=== PATIENT | male | born 1970 | race Caucasian/White ===

== ENCOUNTER 2017-01-26 17:26 | Emergency (ER) | payer OTHER ==
--- NOTE | 2017-01-26 17:59 | DIAGNOSTIC IMAGING REPORT ---
PROCEDURE: XR CHEST 1 VIEW INDICATION: CHEST PAIN TECHNIQUE: Portable AP view (1745 hours). COMPARISON: Compared to chest x-ray on 08/31/2012. FINDINGS: Lungs are clear with mildly prominent fat pad at the right cardiophrenic angle. Heart and mediastinum are normal. Thorax is normal. IMPRESSION: 1. Negative chest.
--- NOTE | 2017-01-26 20:13 | ED ORDER SUMMARY ---
..... Patient: JOSE NIELSEN OrderSheet [facility] VisitID: [id number] [place] [address] 46y, M Registration Date/Time: 01/26/2017 ORDER SHEET Weight: 70.7 kg (stated) Allergies: Codeine GENERAL ORDERS: Chest 1V Urgent (17:36 01/26/2017 HBivens A.R.N.P.) (Ack 17:40 KHoerner) (18:06 HBivens A.R.N.P.) Invasive Cardiologist (Continuous) (17:36 01/26/2017 HBivens A.R.N.P.) (Ack 17:40 KHoerner) (17:42 KPage-Kuchan R.N.) CBC w Diff Urgent (17:37 01/26/2017 HBivens A.R.N.P.) (Ack 17:40 KHoerner) (17:42 KPage-Kuchan R.N.) CMP Urgent (17:37 01/26/2017 HBivens A.R.N.P.) (Ack 17:40 KHoerner) (17:42 KPage-Kuchan R.N.) BNP Urgent (17:37 01/26/2017 HBivens A.R.N.P.) (Ack 17:40 KHoerner) (17:42 KPage-Kuchan R.N.) D-Dimer Urgent (17:37 01/26/2017 HBivens A.R.N.P.) (Ack 17:40 KHoerner) (17:42 KPage-Kuchan R.N.) CPK Urgent (17:37 01/26/2017 HBivens A.R.N.P.) (Ack 17:40 KHoerner) (17:42 KPage-Kuchan R.N.) Troponin-I Urgent (17:37 01/26/2017 HBivens A.R.N.P.) (Ack 17:40 KHoerner) (17:42 KPage-Kuchan R.N.) Oxygen (2 L/min) (NC) (17:37 01/26/2017 HBivens A.R.N.P.) (Ack 17:40 KHoerner) (17:42 KPage-Kuchan R.N.) EKG - ER Stat (17:54 01/26/2017 KHoerner per protocol) (Ack 17:56 KHoerner) (18:23 KHoerner) CPK Urgent (18:19 01/26/2017 HBivens A.R.N.P.) (Ack 18:22 KHoerner) (20:14 AMcQuoid ER Tech1) Troponin-I Urgent (18:19 01/26/2017 HBivens A.R.N.P.) (Ack 18:22 KHoerner) (20:14 AMcQuoid ER Tech1) MEDICATION ORDERS: Aspirin PO 325 mg (Do not crush or chew, NOW) (17:37 01/26/2017 HBivens A.R.N.P.) (Ack 17:42 KPaaraceli-Oliva R.N.) (17:58 KPaaraceli-Kristiann R.N.) IV FLUIDS: IV Saline Lock (17:37 01/26/2017 HBivens A.R.N.P.) (17:42 KPaaraceli-Kuchan R.N.) ORDER SHEET NOTES: [Electronically signed by Brandy Llamas R.N. (20:33 01/26/2017)] [Electronically signed by Carmen Pineda.R.N.P. (20:43 01/26/2017)] [Electronically locked/signed by Brandy Llamas R.N. (20:33 01/26/2017)]
--- NOTE | 2017-01-26 20:13 | ED CLINICAL REPORT ---
Clinical Report - Physicians/Mid Levels [facility] [address] [place] [address] 01/26/2017 17:26 Patient: JOSE NIELSEN Time Seen: 17:30; upon arrival, initial patient contact, initial documentation, patient care assumed. Arrived- By private vehicle. Historian- patient. HISTORY OF PRESENT ILLNESS Chief Complaint: CHEST PAIN and DISCOMFORT. This started yesterday and is still present. It was abrupt in onset and has been constant. At its maximum, severity described as severe. When seen in the E.D., severity described as moderate. Modifying factors- worsened by movement, cough and deep breaths. Not relieved by anything. It is described as pressure, tightness and "pain" and it is described as located in the central chest area and radiating to the upper back. No nausea, vomiting or diaphoresis. (came on suddenly when throwing firewood). He has had mild difficulty breathing on exertion. No additional chest pain. Similar symptoms previously: None. Recent medical care: Not recently seen/assessed. REVIEW OF SYSTEMS No fever, cough or pedal edema. All systems otherwise negative, except as recorded above. PAST HISTORY See nurses notes. PROBLEMS: Obesity. Renal Colic. Cervical Strain. Nephrolithiasis. Gastroesophageal Reflux. Ureterolithiasis. Hepatitis. Bronchitis. COPD - Chronic Obstructive Pulmonary Disease. Gastroesophageal Reflux Disease. Fractured Phalanx (Toe). Migraine Headache. --17:33 Brandy Llamas RAbbey. Peptic Ulcer Disease [RuleOut]. --17:33 Brandy Llamas RAbbey. ADDITIONAL SURGERIES: Kidney stones. Lithotripsy. --17:33 Brandy Llamas R.N. SOCIAL HISTORY Heavy tobacco smoker. Regular alcohol use; consumes beer and liquor. No drug use. No recent travel. Is a local resident. FAMILY HISTORY Negative. ADDITIONAL NOTES The nursing notes have been reviewed with agreement regarding the chief complaint, HPI, ROS, PMH and patient medications and allergies. PHYSICAL EXAM Vital Signs: 01/26/2017 17:30 BP: 125/89. HR: 77. RR: 19. O2 saturation: 98%. Temp: 97.9 F. Pain level now: 04/12. Have been reviewed as normal and appear to be correct. Appearance: Alert. Oriented X3. No acute distress. Eyes: Pupils equal, round and reactive to light. Eyes normal inspection. Neck: Normal inspection. Neck supple. CVS: Normal heart rate and rhythm. Heart sounds normal. Pulses normal. Respiratory: No respiratory distress. Breath sounds normal. Chest nontender. Back: Normal external inspection. Skin: Skin warm and dry. Normal skin color. No rash. Normal skin turgor. Extremities: Extremities exhibit normal ROM. No lower extremity edema. Neuro: Oriented X 3. No motor deficit. No sensory deficit. LABS, X-RAYS, AND EKG EKG: EKG time: (1756). No acute process. No acute ischemia. Normal EKG. Rate: 72. Normal EKG. The study has been interpreted contemporaneously by me (and dr cobb). The EKG appears to be a good tracing. Interpretation time: 1756. Chest X-ray: Normal Chest X-Ray. (IMPRESSION: 1. Negative chest. Electronically Final signed by:Marco Lopez MD 01/26/2017 5:55:17 PM). The X-rays were interpreted by the radiologist and contemporaneously by me. Interpretation time: 18:05. Laboratory Tests: CBC w Diff: (ANDRAE: 01/26/2017 17:39) ( MsgRcvd 01/26/2017 17:53) Final results Test Result Flag Units (Reference) WHITE BLOOD COUNT 11.3 K/uL (4.5-11.5) RED BLOOD COUNT 4.89 M/uL (4.50-5.90) HEMOGLOBIN 15.3 gm/dL (13.5-17.5) HEMATOCRIT 44.8 % (41.0-53.0) MEAN CELL VOLUME 92 fL (80-100) MEAN CORPUSCULAR HGB 31 pg (26-34) MEAN CORPUSCULAR HGB CONC 34 g/dL (31-37) RED CELL DISTRIBUTION WIDTH 12.3 % (11.6-14.8) PLATELET COUNT 362 K/uL (150-400) NEUTROPHIL % 62.5 % (50-75) LYMPH % 22.6 L % (25-40) MONO % 9.0 % (3-14) EOSINOPHIL % 5.0 H % (0-4) BASOPHIL % 0.9 % (0-2) [id number]: (ANDRAE: 01/26/2017 17:39) ( [facility] 01/26/2017 18:17) Final results Test Result Flag Units (Reference) D-DIMER QUANTITATIVE < 0.27 L ug/mLFEU (0.27-0.52) The primary value of this quantitative assay relates toits negative predictive value (i.e. exclusion) of pulmonaryembolism/deep vein thrombosis/DIC.Elevated levels of d-dimer may also occur with:, age, cancer, inflammation, liver disease,post-op, infection, hematoma, coronary disease, peripheralarteriopathy, bleeding disorders and thrombolytic treatment.Results should be correlated with other clinical andradiological data.Testing Methodology: Latex Immunoassay CPK: (ANDRAE: 01/26/2017 19:05) ( [facility] 01/26/2017 19:32) Final results Test Result Flag Units (Reference) CPK 230 U/L (24-260) TROPONIN I 0.05 ng/mL (0.00-1.5) TROPONIN REFERENCE RANGE:<0.1 NEGATIVE0.1-1.5 INDETERMINANT>1.5 POSITIVE BNP: (ANDRAE: 01/26/2017 17:39) ( [facility] 01/26/2017 18:09) Final results Test Result Flag Units (Reference) B-TYPE NATRIURETIC PEPTIDE 5.8 pg/ml (5-100) CMP: (ANDRAE: 01/26/2017 17:39) ( [facility] 01/26/2017 18:09) Final results Test Result Flag Units (Reference) GLUCOSE 97 mg/dL (70-110) BUN 20 H mg/dL (7-18) CREATININE 1.1 mg/dL (0.6-1.3) Estimated GFR >60 mL/min Estimated GFR- >60 mL/min Note: Persistent reduction over 3 months in eGFR<60 mL/min/1.73 m2 defines CKD. Patients with eGFR values>=60 mL/min/1.73 m2 may also have CKD if evidence ofpersistent proteinuria. Additional information may be foundat www.kidney.org. SODIUM 141 mmol/L (136-145) POTASSIUM 4.0 mmol/L (3.5-5.1) CHLORIDE 105 mmol/L (98-107) CARBON DIOXIDE 27 mmol/L (21-32) CALCIUM 9.0 mg/dL (8.5-10.1) TOTAL PROTEIN 7.8 g/dL (6.4-8.2) ALBUMIN 4.2 g/dL (3.3-5.0) BILIRUBIN, TOTAL 1.0 mg/dL (0.0-1.0) ALKALINE PHOSPHATASE 91 U/L (46-116) AST (SGOT) 26 U/L (15-37) ALT (SGPT) 56 U/L (12-78) CPK 231 U/L (24-260) TROPONIN I <0.05 L ng/mL (0.00-1.5) TROPONIN REFERENCE RANGE:<0.1 NEGATIVE0.1-1.5 INDETERMINANT>1.5 POSITIVE . PROGRESS AND PROCEDURES Patient counseled in person regarding the patient's stable condition, test results and diagnosis. 20:08. Differential Diagnosis: I considered muscle strain, costochondritis, myositis, pleurisy, myocardial infarction, intermediate coronary syndrome, unstable angina, angina, aortic dissection, mitral valve prolapse, pericarditis, pulmonary embolism, pneumonia, lung cancer, gastroesophageal reflux disease, esophagitis and esophageal spasm as a possible cause of chest pain in this patient. This is a partial list of diagnoses considered. Above considerations are based on history, physical exam, reassessment, laboratory data, X-Ray data and EKG. Differential diagnosis was discussed with patient. Disposition: Discharged home in good and improved condition (20:13). Condition: good and stable. CLINICAL IMPRESSION Chest wall pain .12 lead EKG performed. Costochondritis .12 lead EKG performed. INSTRUCTIONS Warnings: GENERAL WARNINGS: Return or contact your physician immediately if your condition worsens or changes unexpectedly, if not improving as expected, or if other problems arise. SPECIFICALLY, return if you develop chest, neck, jaw, shoulder, arm, or back pain, difficulty breathing, a fluttering sensation in your chest, lightheadedness, fainting, excessive fatigue, or sudden sweating. Prescription Medications: Naproxen 500 mg tablets: take 1 orally every 12 hours as needed for pain. Dispense twenty (20). No refills. Follow-up: Follow up with your doctor in about two days even if well. Call for an appointment. Summary of care provided to patient. Understanding of the discharge instructions verbalized by patient. (Electronically signed by Carmen Pineda A.R.N.P. 01/26/2017 20:43)
--- NOTE | 2017-01-26 20:13 | ED ORDER SUMMARY ---
..... Patient: JOSE NIELSEN OrderSheet [facility] VisitID: [id number] [place] [address] 46y, M Registration Date/Time: 01/26/2017 ORDER SHEET Weight: 70.7 kg (stated) Allergies: Codeine GENERAL ORDERS: Chest 1V Urgent (17:36 01/26/2017 HBivens A.R.N.P.) (Ack 17:40 KHoerner) (18:06 HBivens A.R.N.P.) Merchandise Examiner (Continuous) (17:36 01/26/2017 HBivens A.R.N.P.) (Ack 17:40 KHoerner) (17:42 KPage-Kuchan R.N.) CBC w Diff Urgent (17:37 01/26/2017 HBivens A.R.N.P.) (Ack 17:40 KHoerner) (17:42 KPage-Kuchan R.N.) CMP Urgent (17:37 01/26/2017 HBivens A.R.N.P.) (Ack 17:40 KHoerner) (17:42 KPage-Kuchan R.N.) BNP Urgent (17:37 01/26/2017 HBivens A.R.N.P.) (Ack 17:40 KHoerner) (17:42 KPage-Kuchan R.N.) D-Dimer Urgent (17:37 01/26/2017 HBivens A.R.N.P.) (Ack 17:40 KHoerner) (17:42 KPage-Kuchan R.N.) CPK Urgent (17:37 01/26/2017 HBivens A.R.N.P.) (Ack 17:40 KHoerner) (17:42 KPage-Kuchan R.N.) Troponin-I Urgent (17:37 01/26/2017 HBivens A.R.N.P.) (Ack 17:40 KHoerner) (17:42 KPage-Kuchan R.N.) Oxygen (2 L/min) (NC) (17:37 01/26/2017 HBivens A.R.N.P.) (Ack 17:40 KHoerner) (17:42 KPage-Kuchan R.N.) EKG - ER Stat (17:54 01/26/2017 KHoerner per protocol) (Ack 17:56 KHoerner) (18:23 KHoerner) CPK Urgent (18:19 01/26/2017 HBivens A.R.N.P.) (Ack 18:22 KHoerner) (20:14 AMcQuoid ER Tech1) Troponin-I Urgent (18:19 01/26/2017 HBivens A.R.N.P.) (Ack 18:22 KHoerner) (20:14 AMcQuoid ER Tech1) MEDICATION ORDERS: Aspirin PO 325 mg (Do not crush or chew, NOW) (17:37 01/26/2017 HBivens A.R.N.P.) (Ack 17:42 KPaaraceli-Oliva R.N.) (17:58 KPaaraceli-Kristiann R.N.) IV FLUIDS: IV Saline Lock (17:37 01/26/2017 HBivens A.R.N.P.) (17:42 KPaaraceli-Kuchan R.N.) ORDER SHEET NOTES: [Electronically signed by Brandy Llamas R.N. (20:33 01/26/2017)] [Electronically signed by Carmen Pineda.R.N.P. (20:43 01/26/2017)] [Electronically locked/signed by Brandy Llamas R.N. (20:33 01/26/2017)]
--- NOTE | 2017-01-26 20:13 | ED NURSING NOTES ---
Clinical Report - Nurses [facility] [address] [place] [address] 01/26/2017 17:26 Patient: JOSE NIELSEN TRIAGE Triage time 17:30 Jan 26 2017. Chief Complaint: CHEST PAIN and (pt reports onset of cp that began yesterday while throwing firewood, pain increases with deep breathing and cough. pt sent from [facility]). Alert. No acute distress. SEPSIS SCREEN: Sepsis Screen: negative. Negative (no infection suspected/documented). --17:36 Brandy Llamas R.N. 17:30 01/26/17. BP: 125/89. HR: 77. RR: 19. O2 saturation: 98%. Temp: 97.9 F. Pain level now: 04/12. --17:36 Brandy Llamas R.N. Weight: 70.7 kg stated. Height/Length: 67 inches Per Patient. BMI: 24.4. --17:33 Brandy Llamas R.N. Medications ProAir HFA Inhalation. --17:32 Brandy Llamas R.N. Omeprazole Oral. --17:33 Brandy Llamas R.N. Hydrochlorothiazide Oral. --17:41 Brandy Llamas R.N. Ranitidine HCl Oral. --17:41 Brandy Llamas R.N. Allergies Codeine. --17:31 Brandy Llamas R.N. History Arrived by private vehicle. Historian: patient and family. Accompanied by family. ( pt states pain is under left shoulder blade and comes "through to the front" inc pain with deep breathing and coughing,). Treatment SIDE TRIMMER: None. PAST MEDICAL HX: Immunizations: up-to-date. SOCIAL HX: Heavy tobacco smoker (cigarette)- less than 1 pack per day. Occasional alcohol use; consumes beer occasionally and liquor occasionally. No drug use. No infectious disease exposure. ( pt "I smoked my last cigarette this morning"). ABUSE ASSESSMENT: No report of abuse. SELF HARM ASSESSMENT: A self harm assessment was performed. The patient answered "no" to the question "Have you recently felt down, depressed, or hopeless?", "Have you noticed less interest or pleasure in doing things?", "Do you have thoughts of harming or killing yourself?", "Are you here because you tried to hurt yourself?", "Have you ever tried to hurt yourself before today?", "Have you recently had thoughts about harming or killing others?" and "Do you have any dangerous items in your possession?". FALL RISK ASSESSMENT: Fall risk assessment completed. No fall risk identified. NUTRITIONAL RISK ASSESSMENT: The nutritional risk assessment revealed no deficiencies. FUNCTIONAL ASSESSMENT: Functional assessment: no impairments noted. LEARNING NEEDS ASSESSMENT: The learning needs assessment revealed no barriers. SKIN INTEGRITY ASSESSMENT: Skin integrity risk assessment completed. No skin integrity risk identified. --17:36 Brandy Llamas R.N. PROBLEMS: Obesity. Renal Colic. Cervical Strain. Nephrolithiasis. Gastroesophageal Reflux. Ureterolithiasis. Hepatitis. Bronchitis. COPD - Chronic Obstructive Pulmonary Disease. Gastroesophageal Reflux Disease. Fractured Phalanx (Toe). Migraine Headache. --17:33 Brandy Llamas R.N. Peptic Ulcer Disease [RuleOut]. --17:33 Brandy Llamas R.N. ADDITIONAL SURGERIES: Kidney stones. Lithotripsy. --17:33 Brandy Llamas R.N. Interventions ID and allergy band on patient. --17:36 Brandy Llamas R.N. PHYSICAL ASSESSMENT Ambulatory to room. Patient gowned. GENERAL / NEURO / PSYCH: Alert. Oriented X 4. Appears in no acute distress. HEENT: Mucous membranes are pink. RESPIRATORY: Respirations not labored. Chest nontender. Breath sounds within normal limits. CVS: Heart sounds within normal limits. Pulses within normal limits. Capillary refill less than 2 seconds. GI / : Abdomen soft and nontender. EXTREMITIES: No lower extremity edema. SKIN: Skin is warm and dry. Normal skin turgor. Skin is non-tender. --17:37 Brandy Llamas R.N. NURSING PROGRESS NOTES 17:33 01/26/2017 Site #1 started via IV antecubital space with an 18g angiocath; one attempt. Blood drawn: rainbow set. Labeled in the presence of the patient and sent to the lab. Saline lock flushed with 10 mL saline. --17:38 Brandy Llamas R.N. clinical educator, pulse oximeter and NIBP monitor placed on patient; hydrodynamics professor- Lead II and V5; monitor alarms on. Blood samples drawn. (with iv stick). Patient gowned. Head of bed elevated. Reassurance given. Two patient identifiers checked. Call light placed in reach. Side rails up x 1. Bed placed in lowest position. Brakes of bed on. Patient waiting for lab results. --17:38 Brandy Llamas R.N. Patient waiting for lab results. --17:58 Brandy Llamas R.N. 17:48 01/26/2017 Aspirin PO 325 mg given. Allergies verified and confirmed 5 rights. --17:58 Brandy Llamas R.N. 17:51 01/26/17. EKG was performed by a nurse and shown to the CLOTHING DESIGNER. Call light placed in reach. ( cxr at bedside). --17:57 Brandy Llamas R.N. Cardiac rhythm: normal sinus rhythm; no ectopy noted. --17:59 Brandy Llamas R.N. ( pt cont in SR, no change in pain level quality or quantity since presentation, pt watching tv, moves about independently on [employer], plan is to draw 2nd set of enzymes at 1900). --18:41 Brandy Llamas R.N. 18:42 01/26/17. BP: 91/73. HR: 76. RR: 18. O2 saturation: 97% on nasal cannula at 2 liters/minute. --18:42 Brandy Llamas R.N. Reassessment after oxygen administered and medication administered (no change in pain following O2 placement). He is calm and resting quietly and has had no adverse reaction. Overall patient status is the same- he states feels the same. RESPIRATORY: No respiratory distress. SKIN: Skin is warm and dry. Skin color within normal limits. --18:43 Brandy Llamas R.N. Patient ID band checked for patient name and birthdate. Blood samples drawn from the right hand by nurse per protocol ; labeled in presence of the patient and sent to lab: [facility]. --19:11 Brandy Llamas R.N. Patient waiting for lab results. ( Pt cont in SR on monitor, no ectopy noted, mom at bedside, waiting 2nd set of enzymes for dispo from ED). --19:36 Brandy Llamas R.N. DISPOSITION / DISCHARGE 20:25 01/26/2017 Site #1 removed upon discharge. Bandaid applied. --20:30 Brandy Llamas R.N. Cardiac rhythm: (SR). Ability to learn limited by intellectual disability; teaching performed with the patient and family. Learning barriers note: with Mom. Reviewed medication(s) side effects and course information. Prescription(s) given to the parent. Reviewed need to stop smoking. Patient and parent verbalized understanding. Written instructions provided in Polish. The patient was discharged by the nurse practitioner. He was discharged home and accompanied by parent. He left the Emergency Department ambulatory and via private vehicle. Parent driving. ( pt dc home ambulatory, given rx and f/u.). --20:32 Brandy Llamas R.N. 20:29 01/26/17. BP: 124/69. HR: 72. RR: 19. O2 saturation: 99%. Temp: 98.3 F. Pain level now: 05/13. --20:32 Brandy Llamas R.N. Locked/Released at 01/26/2017 20:33 by Branyd Llamas R.N.
--- NOTE | 2017-01-26 20:13 | ED NURSING NOTES ---
Clinical Report - Nurses Merged With [facility] [address] [place] [address] 01/26/2017 17:26 Patient: JOSE NIELSEN TRIAGE Triage time 17:30 Jan 26 2017. Chief Complaint: CHEST PAIN and (pt reports onset of cp that began yesterday while throwing firewood, pain increases with deep breathing and cough. pt sent from [facility]). Alert. No acute distress. SEPSIS SCREEN: Sepsis Screen: negative. Negative (no infection suspected/documented). --17:36 Brandy Llamas R.N. 17:30 01/26/17. BP: 125/89. HR: 77. RR: 19. O2 saturation: 98%. Temp: 97.9 F. Pain level now: 04/12. --17:36 Brandy Llamas R.N. Weight: 70.7 kg stated. Height/Length: 67 inches Per Patient. BMI: 24.4. --17:33 Brandy Llamas R.N. Medications ProAir HFA Inhalation. --17:32 Brandy Llamas R.N. Omeprazole Oral. --17:33 Brandy Llamas R.N. Hydrochlorothiazide Oral. --17:41 Brandy Llamas R.N. Ranitidine HCl Oral. --17:41 Brandy Llamas R.N. Allergies Codeine. --17:31 Brandy Llamas R.N. History Arrived by private vehicle. Historian: patient and family. Accompanied by family. ( pt states pain is under left shoulder blade and comes "through to the front" inc pain with deep breathing and coughing,). Treatment DETENTION DEPUTY: None. PAST MEDICAL HX: Immunizations: up-to-date. SOCIAL HX: Heavy tobacco smoker (cigarette)- less than 1 pack per day. Occasional alcohol use; consumes beer occasionally and liquor occasionally. No drug use. No infectious disease exposure. ( pt "I smoked my last cigarette this morning"). ABUSE ASSESSMENT: No report of abuse. SELF HARM ASSESSMENT: A self harm assessment was performed. The patient answered "no" to the question "Have you recently felt down, depressed, or hopeless?", "Have you noticed less interest or pleasure in doing things?", "Do you have thoughts of harming or killing yourself?", "Are you here because you tried to hurt yourself?", "Have you ever tried to hurt yourself before today?", "Have you recently had thoughts about harming or killing others?" and "Do you have any dangerous items in your possession?". FALL RISK ASSESSMENT: Fall risk assessment completed. No fall risk identified. NUTRITIONAL RISK ASSESSMENT: The nutritional risk assessment revealed no deficiencies. FUNCTIONAL ASSESSMENT: Functional assessment: no impairments noted. LEARNING NEEDS ASSESSMENT: The learning needs assessment revealed no barriers. SKIN INTEGRITY ASSESSMENT: Skin integrity risk assessment completed. No skin integrity risk identified. --17:36 Brandy Llamas R.N. PROBLEMS: Obesity. Renal Colic. Cervical Strain. Nephrolithiasis. Gastroesophageal Reflux. Ureterolithiasis. Hepatitis. Bronchitis. COPD - Chronic Obstructive Pulmonary Disease. Gastroesophageal Reflux Disease. Fractured Phalanx (Toe). Migraine Headache. --17:33 Brandy Llamas R.N. Peptic Ulcer Disease [RuleOut]. --17:33 Brandy Llamas R.N. ADDITIONAL SURGERIES: Kidney stones. Lithotripsy. --17:33 Brandy Llamas R.N. Interventions ID and allergy band on patient. --17:36 Brandy Llamas R.N. PHYSICAL ASSESSMENT Ambulatory to room. Patient gowned. GENERAL / NEURO / PSYCH: Alert. Oriented X 4. Appears in no acute distress. HEENT: Mucous membranes are pink. RESPIRATORY: Respirations not labored. Chest nontender. Breath sounds within normal limits. CVS: Heart sounds within normal limits. Pulses within normal limits. Capillary refill less than 2 seconds. GI / : Abdomen soft and nontender. EXTREMITIES: No lower extremity edema. SKIN: Skin is warm and dry. Normal skin turgor. Skin is non-tender. --17:37 Brandy Llamas R.N. NURSING PROGRESS NOTES 17:33 01/26/2017 Site #1 started via IV antecubital space with an 18g angiocath; one attempt. Blood drawn: rainbow set. Labeled in the presence of the patient and sent to the lab. Saline lock flushed with 10 mL saline. --17:38 Brandy Llamas R.N. marketing operations specialist, pulse oximeter and NIBP monitor placed on patient; head filter press tender- Lead II and V5; monitor alarms on. Blood samples drawn. (with iv stick). Patient gowned. Head of bed elevated. Reassurance given. Two patient identifiers checked. Call light placed in reach. Side rails up x 1. Bed placed in lowest position. Brakes of bed on. Patient waiting for lab results. --17:38 Brandy Llamas R.N. Patient waiting for lab results. --17:58 Brandy Llamas R.N. 17:48 01/26/2017 Aspirin PO 325 mg given. Allergies verified and confirmed 5 rights. --17:58 Brandy Llamas R.N. 17:51 01/26/17. EKG was performed by a nurse and shown to the SPRING MAN[employer]URING SET UP TECHNICIAN. Call light placed in reach. ( cxr at bedside). --17:57 Brandy Llamas R.N. Cardiac rhythm: normal sinus rhythm; no ectopy noted. --17:59 Brandy Llamas R.N. ( pt cont in SR, no change in pain level quality or quantity since presentation, pt watching tv, moves about independently on Where's Up, plan is to draw 2nd set of enzymes at 1900). --18:41 Brandy Llamas R.N. 18:42 01/26/17. BP: 91/73. HR: 76. RR: 18. O2 saturation: 97% on nasal cannula at 2 liters/minute. --18:42 Brandy Llamas R.N. Reassessment after oxygen administered and medication administered (no change in pain following O2 placement). He is calm and resting quietly and has had no adverse reaction. Overall patient status is the same- he states feels the same. RESPIRATORY: No respiratory distress. SKIN: Skin is warm and dry. Skin color within normal limits. --18:43 Brandy Llamas R.N. Patient ID band checked for patient name and birthdate. Blood samples drawn from the right hand by nurse per protocol ; labeled in presence of the patient and sent to lab: [facility]. --19:11 Brandy Llamas R.N. Patient waiting for lab results. ( Pt cont in SR on monitor, no ectopy noted, mom at bedside, waiting 2nd set of enzymes for dispo from ED). --19:36 Brandy Llamas R.N. DISPOSITION / DISCHARGE 20:25 01/26/2017 Site #1 removed upon discharge. Bandaid applied. --20:30 Brandy Llamas R.N. Cardiac rhythm: (SR). Ability to learn limited by intellectual disability; teaching performed with the patient and family. Learning barriers note: with Mom. Reviewed medication(s) side effects and course information. Prescription(s) given to the parent. Reviewed need to stop smoking. Patient and parent verbalized understanding. Written instructions provided in Ukrainian. The patient was discharged by the nurse practitioner. He was discharged home and accompanied by parent. He left the Emergency Department ambulatory and via private vehicle. Parent driving. ( pt dc home ambulatory, given rx and f/u.). --20:32 Brandy Llamas R.N. 20:29 01/26/17. BP: 124/69. HR: 72. RR: 19. O2 saturation: 99%. Temp: 98.3 F. Pain level now: 05/13. --20:32 Brandy Llamas R.N. Locked/Released at 01/26/2017 20:33 by Brandy Llamas R.N.
--- NOTE | 2017-01-26 20:43 | ED MED RECONCILIATION SUMMARY ---
Patient: JOSE NIELSEN Medication Reconciliation Report [facility] VisitID: [id number] [address] [place] [address] 46y, M Registration Date/Time: 01/26/2017 Weight: 70.7 kg Height/Length: 67 in. BMI: 24.4 ALLERGIES: Codeine The patient's Home Medications are listed below: THE FOLLOWING MEDICATIONS NEED TO BE RECONCILED: Hydrochlorothiazide Oral Omeprazole Oral ProAir HFA Inhalation Ranitidine HCl Oral The source(s) of the original Home Medication information: Not obtained. The following Medications were given to the patient in the Emergency Department: Aspirin [PO] PO 325 mg, administered: 01/26/2017 5:48:00 PM The following Medications were prescribed to the patient: Naproxen 500 mg tablets: take 1 orally every 12 hours as needed for pain. Dispense twenty (20). No refills. -- Carmen Pineda A.R.N.P.
--- NOTE | 2017-01-26 20:43 | ED MAR SUMMARY ---
..... Medication Administration Record [facility] [address] [place] [address] Patient: JOSE NIELSEN Visit ID: [id number] 46y, M Weight: 70.7 kg Height/Length: 67 in BMI: 24.4 ALLERGIES: Codeine Given 17:48 01/26/2017 Brandy Llamas RAnt Medication Administered: ASPIRIN [PO], Dose: 325 mg PO. Medication Ordered: Aspirin PO 325 mg (Do not crush or chew, NOW).
--- NOTE | 2017-01-26 20:43 | ED MAR SUMMARY ---
..... Medication Administration Record [facility] [address] [place] [address] Patient: JOSE NIELSEN Visit ID: [id number] 46y, M Weight: 70.7 kg Height/Length: 67 in BMI: 24.4 ALLERGIES: Codeine Given 17:48 01/26/2017 Brandy Llamas RAnt Medication Administered: ASPIRIN [PO], Dose: 325 mg PO. Medication Ordered: Aspirin PO 325 mg (Do not crush or chew, NOW).
--- NOTE | 2017-01-26 20:43 | ED DISCHARGE INSTRUCTIONS ---
Patient: JOSE NIELSEN General Instructions [facility] VisitID: [id number] [place] [address] 46y, M Registration Date/Time: 01/26/2017 Chest wall pain .12 lead EKG performed. Costochondritis .12 lead EKG performed. INSTRUCTIONS Warnings: GENERAL WARNINGS: Return or contact your physician immediately if your condition worsens or changes unexpectedly, if not improving as expected, or if other problems arise. SPECIFICALLY, return if you develop chest, neck, jaw, shoulder, arm, or back pain, difficulty breathing, a fluttering sensation in your chest, lightheadedness, fainting, excessive fatigue, or sudden sweating. Prescription Medications: Naproxen 500 mg tablets: take 1 orally every 12 hours as needed for pain. Dispense twenty (20). No refills. Follow-up: Follow up with your doctor in about two days even if well. Call for an appointment. Summary of care provided to patient. Understanding of the discharge instructions verbalized by patient. ADDITIONAL INFORMATION Chest Wall Pain: Costochondritis The chest pain that you have had today is caused by Costochondritis. This condition is due to an inflammation of the cartilage joining the ribs to the breastbone. It is not caused by heart or lung problems. Although the exact cause for costochondritis is not known, it often occurs during times of emotional stress. It can be painful, but it is not dangerous. It usually disappears within one to two weeks, but may recur. Rarely, a more serious condition may cause symptoms similar to costochondritis; therefore, watch for the warning signs listed below. Home Care: If you feel that emotional stress is a cause of your condition, try to identify sources of that stress. It may not be obvious! Learn ways to deal with the stress in your life such as regular exercise, muscle relaxation, meditation, or simply taking time out for yourself. For more information about this, consult your doctor or go to a local bookstore and review books and tapes available on the subject of stress reduction. You may use acetaminophen (Tylenol) or ibuprofen (Motrin, Advil) to control pain, unless another pain medicine was prescribed. [ NOTE: If you have liver disease or ever had a stomach ulcer, talk with your doctor before using these medicines.] The use of heat (hot wet compress or heating pad) with or without local analgesic creams (Deep Heat Rub, Ej Olivia) will be helpful to reduce pain. Follow Up with your doctor as directed or sooner if you do not start to improve within the next two days. Get Prompt Medical Attention if any of the following occur: A change in the type of pain: if it feels different, becomes more severe, lasts longer, or spreads into your shoulder, arm, neck, jaw or back Shortness of breath or increased pain with breathing Weakness, dizziness, or fainting Cough with dark colored sputum (phlegm) or blood Abdominal pain Dark red or black stools Fever of 100.4F (38C) or higher, or as directed by your healthcare provider Chest Strain A strain of the chest is due to stretching and tearing of the muscle fibers between the ribs. This may occur as a result of severe coughing, strenuous lifting or twisting injuries of the upper back. This usually causes increased pain with movement or deep breathing. This may take a few days to a few weeks to heal. Home Care: Rest. Avoid heavy lifting or strenuous exertion. Avoid any activity that causes pain. If you have a severe cough, use a cough syrup such as Robitussin DM (containing dextromethorphan) unless another cough medicine was prescribed. You may use acetaminophen (Tylenol) or ibuprofen (Motrin, Advil) to control pain, unless another medicine was prescribed. [ NOTE: If you have chronic liver or kidney disease or ever had a stomach ulcer or GI bleeding, talk with your doctor before using these medicines.] Follow Up with your doctor as directed. Get Prompt Medical Attention if any of the following occur: A change in the type of pain: if it feels different, becomes more severe, lasts longer, or begins to spread into your shoulder, arm, neck, jaw or back Shortness of breath or increased pain with breathing Cough with dark colored sputum (phlegm) or blood Weakness, dizziness, or fainting Fever of 100.4F (38C) or higher, or as directed by your healthcare provider Chest Wall Pain: Costochondritis The chest pain that you have had today is caused by Costochondritis. This condition is due to an inflammation of the cartilage joining the ribs to the breastbone. It is not caused by heart or lung problems. Although the exact cause for costochondritis is not known, it often occurs during times of emotional stress. It can be painful, but it is not dangerous. It usually disappears within one to two weeks, but may recur. Rarely, a more serious condition may cause symptoms similar to costochondritis; therefore, watch for the warning signs listed below. Home Care: If you feel that emotional stress is a cause of your condition, try to identify sources of that stress. It may not be obvious! Learn ways to deal with the stress in your life such as regular exercise, muscle relaxation, meditation, or simply taking time out for yourself. For more information about this, consult your doctor or go to a local bookstore and review books and tapes available on the subject of stress reduction. You may use acetaminophen (Tylenol) or ibuprofen (Motrin, Advil) to control pain, unless another pain medicine was prescribed. [ NOTE: If you have liver disease or ever had a stomach ulcer, talk with your doctor before using these medicines.] The use of heat (hot wet compress or heating pad) with or without local analgesic creams (Deep Heat Rub, Ej Olivia) will be helpful to reduce pain. Follow Up with your doctor as directed or sooner if you do not start to improve within the next two days. Get Prompt Medical Attention if any of the following occur: A change in the type of pain: if it feels different, becomes more severe, lasts longer, or spreads into your shoulder, arm, neck, jaw or back Shortness of breath or increased pain with breathing Weakness, dizziness, or fainting Cough with dark colored sputum (phlegm) or blood Abdominal pain Dark red or black stools Fever of 100.4F (38C) or higher, or as directed by your healthcare provider Naproxen Sodium Oral tablet What is this medicine? NAPROXEN (na PROX en) is a non-steroidal anti-inflammatory drug (NSAID). It is used to reduce swelling and to treat pain. This medicine may be used for dental pain, headache, or painful monthly periods. It is also used for painful joint and muscular problems such as arthritis, tendinitis, bursitis, and gout. How should I use this medicine? Take this medicine by mouth with a glass of water. Follow the directions on the prescription label. Take it with food if your stomach gets upset. Try to not lie down for at least 10 minutes after you take it. Take your medicine at regular intervals. Do not take your medicine more often than directed. Long-term, continuous use may increase the risk of heart attack or stroke. A special MedGuide will be given to you by the pharmacist with each prescription and refill. Be sure to read this information carefully each time. Talk to your animal care provider regarding the use of this medicine in children. Special care may be needed. What side effects may I notice from receiving this medicine? Side effects that you should report to your doctor or health customer care manager as soon as possible: black or bloody stools, blood in the urine or vomit blurred vision chest pain difficulty breathing or wheezing nausea or vomiting severe stomach pain skin rash, skin redness, blistering or peeling skin, hives, or itching slurred speech or weakness on one side of the body swelling of eyelids, throat, lips unexplained weight gain or swelling unusually weak or tired yellowing of eyes or skin Side effects that usually do not require medical attention (report to your doctor or health customer care manager if they continue or are bothersome): constipation headache heartburn What may interact with this medicine? alcohol aspirin cidofovir diuretics lithium methotrexate other drugs for inflammation like ketorolac or prednisone pemetrexed probenecid warfarin What if I miss a dose? If you miss a dose, take it as soon as you can. If it is almost time for your next dose, take only that dose. Do not take double or extra doses. Where should I keep my medicine? Keep out of the reach of children. Store at room temperature between 15 and 30 degrees C (59 and 86 degrees F). Keep container tightly closed. Throw away any unused medicine after the expiration date. What should I tell my health care provider before I take this medicine? They need to know if you have any of these conditions: asthma cigarette smoker drink more than 3 alcohol containing drinks a day heart disease or circulation problems such as heart failure or leg edema (fluid retention) high blood pressure kidney disease liver disease stomach bleeding or ulcers an unusual or allergic reaction to naproxen, aspirin, other NSAIDs, other medicines, foods, dyes, or preservatives or trying to get breast-feeding What should I watch for while using this medicine? Tell your doctor or health customer care manager if your pain does not get better. Talk to your doctor before taking another medicine for pain. Do not treat yourself. This medicine does not prevent heart attack or stroke. In fact, this medicine may increase the chance of a heart attack or stroke. The chance may increase with longer use of this medicine and in people who have heart disease. If you take aspirin to prevent heart attack or stroke, talk with your doctor or health customer care manager. Do not take other medicines that contain aspirin, ibuprofen, or naproxen with this medicine. Side effects such as stomach upset, nausea, or ulcers may be more likely to occur. Many medicines available without a prescription should not be taken with this medicine. This medicine can cause ulcers and bleeding in the stomach and intestines at any time during treatment. Do not smoke cigarettes or drink alcohol. These increase irritation to your stomach and can make it more susceptible to damage from this medicine. Ulcers and bleeding can happen without warning symptoms and can cause . You may get drowsy or dizzy. Do not drive, use machinery, or do anything that needs mental alertness until you know how this medicine affects you. Do not stand or sit up quickly, especially if you are an older patient. This reduces the risk of dizzy or fainting spells. This medicine can cause you to bleed more easily. Try to avoid damage to your teeth and gums when you brush or floss your teeth. You have been given the following additional information: Chest Wall Pain, Costochondritis Chest Wall Strain Chest Wall Pain, Costochondritis Naproxen Sodium Oral tablet (Electronically signed by Carmen Pineda A.R.N.P. 01/26/2017 20:43)
--- NOTE | 2017-01-26 20:43 | ED MED RECONCILIATION SUMMARY ---
Patient: JOSE NIELSEN Medication Reconciliation Report [facility] VisitID: [id number] [address] [place] [address] 46y, M Registration Date/Time: 01/26/2017 Weight: 70.7 kg Height/Length: 67 in. BMI: 24.4 ALLERGIES: Codeine The patient's Home Medications are listed below: THE FOLLOWING MEDICATIONS NEED TO BE RECONCILED: Hydrochlorothiazide Oral Omeprazole Oral ProAir HFA Inhalation Ranitidine HCl Oral The source(s) of the original Home Medication information: Not obtained. The following Medications were given to the patient in the Emergency Department: Aspirin [PO] PO 325 mg, administered: 01/26/2017 5:48:00 PM The following Medications were prescribed to the patient: Naproxen 500 mg tablets: take 1 orally every 12 hours as needed for pain. Dispense twenty (20). No refills. -- Carmen Pineda A.R.N.P.
== END 2017-01-26 20:28 | disposition home or self-care (01) ==
LOC: ED SRH 17:26
DX: R07.89 Other chest pain (principal); M94.0 Chondrocostal junction syndrome [Tietze]; F17.210 Nicotine dependence, cigarettes, uncomplicated; K21.9 Gastro-esophageal reflux disease without esophagitis
CPT/HCPCS: 90100; 90616; 91320; 91556; 92610; 95059